=== PATIENT | female | born 1985 | race American Indian/Alaskan Native ===

== ENCOUNTER 2016-12-30 11:52 | Emergency (ER) | payer OTHER ==
[2016-12-30 11:59] VITALS: BMI 22.3
[2016-12-30] MEDS ORDERED: ALBUTEROL SO4 0.083% IH SOL 2.5 MG/3 ML VIAL.NEB. NEB ONE ×2 (12:51→13:45)
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
[2016-12-30] MEDS ORDERED: LORATADINE 10 MG TABLET PO ONE (13:26)
[2016-12-30 13:39] LABS: MCH 30.5 pg (25.7-33.7); MCHC 33.8 g/dl (32.0-36.0); MEAN CELL VOLUME 90.1 fl (80-96); PLATELET COUNT 191 K/MM3 (134-434); RDW 12.7 % (11.6-15.6)
[2016-12-30] MEDS ORDERED: LORATADINE 10 MG TABLET ONE (13:45)
[2016-12-30 13:52] LABS: ALBUMIN 2.6 g/dl (3.4-5.0); ALK PHOS 81 U/L (45-117); ANION GAP 14 (8-16); BILIRUBIN,TOTAL 0.6 mg/dL (0.2-1.0); CALCIUM 8.6 mg/dL (8.5-10.1); CO2 23 mmol/L (21-32); CREATININE 0.5 mg/dL (0.55-1.02); GLUCOSE,RANDOM 119 mg/dL (74-106); SGOT/AST 14 U/L (15-37); SGPT/ALT 21 U/L (12-78); TOT PROT 6.4 g/dl (6.4-8.2)
[2016-12-30 14:21] LABS: TROPONIN I < 0.02 ng/ml (0.00-0.05)
--- NOTE | 2016-12-30 15:03 | EKG ---
Test Reason : Blood Pressure : / mmHG Vent. Rate : 108 BPM Atrial Rate : 108 BPM P-R Int : 128 ms QRS Dur : 070 ms QT Int : 322 ms P-R-T Axes : 062 019 026 degrees QTc Int : 431 ms SINUS TACHYCARDIA OTHERWISE NORMAL ECG NO PREVIOUS ECGS AVAILABLE Confirmed by TAWANDA MOELLER MD ([id number]) on 12/30/2016 3:03:18 PM Referred By: Confirmed By:TAWANDA MOELLER MD
[2016-12-30 20:40] LABS: PLATELET ESTIMATE ADEQUATE (NORMAL)
--- NOTE | 2016-12-30 20:54 | PDOC ---
*Physical Exam - Vital Signs Last Vital Signs Temp Pulse Resp BP Pulse Ox 97.9 F 122 H 20 106/62 97 12/30/16 19:00 12/30/16 19:00 12/30/16 19:00 12/30/16 19:00 12/30/16 19:00 ED Treatment Course - LABORATORY CBC & Chemistry Diagram: 12/30/16 13:20 12/30/16 13:20 - ADDITIONAL ORDERS Additional order review: Laboratory Results 12/30/16 12/30/16 14:14 13:20 D-Dimer 697 H Sodium 138 Potassium 4.5 Chloride 101 Carbon Dioxide 23 Anion Gap 14 BUN 7 Creatinine 0.5 L Creat Clearance w eGFR > 60 Random Glucose 119 H Calcium 8.6 Total Bilirubin 0.6 AST 14 L ALT 21 Alkaline Phosphatase 81 Creatine Kinase 33 Troponin I < 0.02 Total Protein 6.4 Albumin 2.6 L 12/30/16 13:20 RBC 3.73 MCV 90.1 MCHC 33.8 RDW 12.7 MPV 10.0 Neutrophils % 74.0 Lymphocytes % 8.0 Monocytes % 8.0 - Medications Given in the ED: ED Medications Discontinued Medications Generic Name Dose Route Start Last Admin Trade Name Freq PRN Reason Stop Dose Admin Albuterol Sulfate 1 amp 12/30/16 12:51 12/30/16 13:46 Ventolin 0.083% Nebulizer Soln - NEB 12/30/16 12:52 1 amp ONCE ONE Administration Loratadine 10 mg 12/30/16 13:26 12/30/16 13:46 Claritin - PO 12/30/16 13:27 10 mg ONCE ONE Administration Medical Decision Making - Medical Decision Making 12/30/16 20:53 Pt to go to [facility] for monitoring. *DC/Admit/Observation/Transfer Diagnosis at time of Disposition: Dyspnea Qualifiers: Dyspnea type: unspecified Qualified Code(s): R06.00 - Dyspnea, unspecified Qualifiers: Weeks of gestation: 31 weeks Qualified Code(s): Z3A.31 - 31 weeks gestation of
[2016-12-30 22:40] LABS: URINE APPEARANCE CLEAR; URINE BILIRUBIN NEGATIVE (NEGATIVE); URINE COLOR STRAW; URINE GLUCOSE (UA) NEGATIVE (NEGATIVE); URINE KETONE TRACE (NEGATIVE); URINE LEUK ESTERASE NEGATIVE (NEGATIVE); URINE NITRITE NEGATIVE (NEGATIVE); URINE PROTEIN NEGATIVE (NEGATIVE); URINE UROBILINOGEN NEGATIVE E.U./dl (0.2-1.0)
[2016-12-30 22:53] LABS: URINE BLOOD 1+ (NEGATIVE)
[2016-12-30] MEDS ORDERED: SODIUM CHLORIDE 1,000 ML IV SCH ×2 (23:00→23:45)
[2016-12-30 23:13] LABS: URINE BACTERIA RARE /hpf (NONE SEEN); URINE RBC 2 /hpf (0-3); URINE WBC 1 /hpf (3-5)
[2016-12-30 23:40] VITALS: BP 98/63; PULSE 110; TEMP 98.1
== END 2016-12-31 01:30 | disposition home or self-care (01) ==
LOC: JER 11:52
PROC: 3E0337Z Introduction of Electrolytic and Water Balance Substance into Peripheral Vein, Percutaneous Approach (ICD-10-PCS; principal; 2016-12-30)
PROC: 3E0F7GC Introduction of Other Therapeutic Substance into Respiratory Tract, Via Natural or Artificial Opening (ICD-10-PCS; 2016-12-30)
DX: O26.891 Other specified pregnancy related conditions, first trimester (principal); R06.00 Dyspnea, unspecified; Z3A.31 31 weeks gestation of pregnancy
CPT/HCPCS: 36415; 71020-TC; 71275-TC; 80053; 81003; 81015; 82550; 84484; 85025; 85379; 87086; 93005; 93010; 93970-TC; 99285-25